=== PATIENT | female | born 1975 | race Caucasian/White ===

== ENCOUNTER 2023-07-17 09:46 | Outpatient (RCR) | payer BC, SELFPAY ==
--- NOTE | 2023-07-17 10:40 | OPREHPOC ---
Outpatient Therapy Plan of Care This is a Multidisciplinary Plan of Care that may contain components documented by all disciplines (PT, OT, and ST.) PT Problem 1 PT Problem #1 Knowledge Deficit PT Goal 1 Goal 1. Patient will perform independent HEP Target Visit 5 PT Problem 2 PT Problem #2 Impaired Strength PT Goal 1 Goal 1. Improve pelvic floor strength to 3/5 to decrease incontinence Target Visit 5 PT Goal 2 Goal 2. Improve pelvic floor endurance to 10 seconds to decrease incontinence PT Problem 3 PT Problem #3 Impaired Functional ADLs PT Goal 1 Goal 1. Patient will report no more than 2 instances of urinary incontinence per week
--- NOTE | 2023-07-17 10:40 | PTOPEVAL1 ---
Assessment and note entered by Anais Aragon DPT Evaluation Information Assessment Status Evaluation Subjective Information Pt reports some urinary incontinence and feels a lot of pressure. Incontinence occurs with running, standing up, coughing, sneezing, certain positions during intercourse. Has been occurring for a long time but has greatly worsened over the past 6 months. Has been told she is perimenopausal . Notices incontinence 2-3 times a day and sees a bulge after being on her feet a long time. Voids 4 -5 times a day and 0-1 times a night. Can hold urge 5-10 minutes and sometimes is running to bathroom and will leak on the way. Denies pain with urination. BM every few days, no pain. Denies history of pelvic pain other than mild discomfort with sex at times. Pt has been 2 times, 2 vaginal deliveries with significant tearing. No other TERMINAL GAUGER history and no other b/b history. Thinks she still has a diastasis. Patient goal: stop peeing my pants . Reports embarrassment over the incontinence and frustration over the cost of leak-proof underwear or pads. Sometimes has to change her clothes. States she will always know where the bathroom is when she is out and about and avoids strenuous activities. Spinal fusion L5-S1 8 years ago. Reported Pain Level Pain Score 0: Self Report Assessment PT Clinical Summary The patient is presenting to skilled therapy with a history of urinary incontinence that has greatly worsened over the last 6 months. She presents with decreased pelvic floor muscle strength and endurance, decreased core strength, and POP which are contributing to her significant incontinence. She will highly benefit from therapy to address her impairments in order to reduce incontinence and improve function. Plan of Care Interventions Manual Therapy,Neuro Re-education,Patient/ Caregiver Education,Therapeutic Activities, Therapeutic Exercise PT Services Indicated Yes These treatments will address the objective and functional deficits as defined above. The patient will be advanced safely and appropriately in order for the patient to progress towards his/her prior level of function. Additional exercises will be introduced and as well as a comprehensive home exercise program upon discharge, if needed, ?to ensure ca
--- NOTE | 2023-07-17 10:43 | PTOPEVAL1 ---
Assessment and note entered by Anais Aragon DPT Evaluation Information Assessment Status Evaluation Subjective Information Pt reports some urinary incontinence and feels a lot of pressure. Incontinence occurs with running, standing up, coughing, sneezing, certain positions during intercourse. Has been occurring for a long time but has greatly worsened over the past 6 months. Has been told she is perimenopausal . Notices incontinence 2-3 times a day and sees a bulge after being on her feet a long time. Voids 4 -5 times a day and 0-1 times a night. Can hold urge 5-10 minutes and sometimes is running to bathroom and will leak on the way. Denies pain with urination. BM every few days, no pain. Denies history of pelvic pain other than mild discomfort with sex at times. Pt has been 2 times, 2 vaginal deliveries with significant tearing. 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 Thinks she still has a diastasis. Patient goal: stop peeing my pants . Reports embarrassment over the incontinence and frustration over the cost of leak-proof underwear or pads. Sometimes has to change her clothes. States she will always know where the bathroom is when she is out and about and avoids strenuous activities. Spinal fusion L5-S1 8 years ago. Reported Pain Level Pain Score 0: Self Report Assessment PT Clinical Summary The patient is presenting to skilled therapy with a history of urinary incontinence that has greatly worsened over the last 6 months. She presents with decreased pelvic floor muscle strength and endurance, decreased core strength, and POP which are contributing to her significant incontinence. She will highly benefit from therapy to address her impairments in order to reduce incontinence and improve function. Plan of Care Interventions Manual Therapy,Neuro Re-education,Patient/ Caregiver Education,Therapeutic Activities, Therapeutic Exercise PT Services Indicated Yes Treatment Frequency and 1 visit every 2-3 weeks for 5 visits total (based Duration on patient schedule) These treatments will address the objective and functional deficits as defined above. The patient will be advanced safely and appropriately in order for the patient to progress towards hi
--- NOTE | 2023-08-01 13:52 | PCPTNOTE ---
Patient did not show up for appointment 08/01/23. Called and left voicemail for patient.
--- NOTE | 2023-09-05 13:51 | PTOPDC ---
Assessment and note entered by Anais Aragon, DPT Evaluation Information Assessment Status Discharge - Pt Not Present Subjective Information - Assessment PT Clinical Summary Patient no showed re-evaluation today and has not been in attendance since initial evaluation in July. Her case will be discharged. Plan of Care PT Services Indicated No
== END 2023-09-05 15:15 | disposition home or self-care (01) ==
LOC: ANHPT 09:46
PROVIDERS: PCP Family Medicine; Visit Provider Family Medicine
DX: R10.2 Pelvic and perineal pain (principal)
CPT/HCPCS: 97112; 97161; 97530; 99199

== ENCOUNTER 2025-08-29 15:39 | Outpatient (CLI) | payer OTHER, SELFPAY ==
[2025-08-29 16:04] LABS: Hematocrit 38.7 % (35.0-49.0); Hemoglobin 13.0 g/dL (12.0-15.0); Mean Corpuscular HGB Conc 33.6 g/dL (32-36); Mean Corpuscular Hemoglobin 30.4 pg (27.0-31.0); Mean Corpuscular Volume 90.4 fL (78.0-102.0); Platelet Count Result 398 K/mm3 (150-420); Red Blood Count 4.28 M/mm3 (4.20-5.40); White Blood Count 8.1 K/mm3 (4.8-10.8)
[2025-08-29 16:25] LABS: Hemoglobin A1C 5.0 % (<5.7)
--- OUTSIDE RECORDS SUMMARY | 2025-08-29 16:32 | XMS_ITS | Patient Health Record ---
Author Organization [facility] As Locally Address [address] [facility] [address] [place] [address] Care Team Providers Care Shop Manager Name Role Phone Eyad Curran MD Primary Care Provider Stephen Lange Unavailable [phone] Allergies Allergen (clinical drug ingredient) Drug/Non Drug Allergy documented on EMR Reaction Allergy Type Onset Date Status Substance with sulfonamide structure and antibacterial mechanism of action (substance) Sulfa Antibiotics Unknown Drug Allergy Active Results Component Value Reference Range Notes UDT Reviewed date:11/11/2024 02:39:22 PM Interpretation: Performing Lab: Notes/Report: THC N 0 - 50 ng/ml Cocaine N 0 - 300 ng/ml Amphetamine N 0 - 1000 ng/ml Buprenorphine (BUP) N 0 - 10 ng/ml Secobarbital (Bar) N 0 - 300 ng/ml Oxazepam (BZO) N 0 - 300 ng/ml 5-ebjqvklcao-4,1-zatiosdr-1,3-diphenylpyrrolidine (JORGE P) N 0 - 300 ng/ml Methamphetamine (MET) N 0 - 1000 ng/ml Methylenedioxymethamphetamine (MDMA) N 0 - 500 ng/ml Morphine (MOP 300/[id number]) N 0 - 300 ng/ml Methadone (MTD) N 0 - 300 ng/ml Phencyclidine (PCP) N 0 - 25 ng/ml Nortriptyline (TCA) N 0 - 1000 ng/ml Oxycodone N 0 - 300 ng/ml x N 0 - 300 ng/ml Reason For Referral No Information Medications Medication SIG (Take, Route, Frequency, Duration) Notes Start Date End Date Status buPROPion HCl ER (SR) 150 MG Tablet Extended Release 12 Hour TAKE 1 TABLET BY MOUTH TWICE DAILY Oral; Duration: 30 Days Active Lisinopril 20 MG Tablet TAKE 1 TABLET BY MOUTH ONCE DAILY Oral; Duration: 30 Days Active Social History Tobacco Use: Social History Observation Description Date Details (start date - stop date) Never Smoker NA - NA Sex Assigned At : Social History Observation Description Sex Assigned At Female Social History Miscellaneous: Social Info Question Answer Notes Advance Care Planning Are you your own decision-maker Yes Do you have Power of [place] for Health or Medi nella? No Safety issues: Are there any firearms in the house? No Social History Social Info Question Answer Notes Household: Marital Status: Number of Adults in household: 2 Number of Children in Household: 0 Level of Education: Professional Schools/Masters /PhD Drug/Alcohol: Social Info Question Answer Notes AUDIT-C (Standard) Did you have a drink containing alcohol in the past year? Yes How often did you have a drink containing alcohol in the past year? 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), predominantly inattentive type (F90.0) Active confirmed Vital Signs Heart Rate 84 /min 11/11/2024 Height-cm 167.64 cm 11/11/2024 Blood pressure diastolic 90 mm Hg 11/11/2024 Weight-kg 79.38 kg 11/11/2024 Height 66 in 11/11/2024 Blood pressure systolic 148 mm Hg 11/11/2024 Weight 175 lbs 11/11/2024 BMI 28.24 kg/m2 11/11/2024 Encounters Encounter Location Date Provider Diagnosis [facility] [address] [place] [address] 11/11/2024 Stephen Ambriz Attention deficit hyperactivity disorder (ADHD), predominantly inattentive type F90.0 and FELIZ (generalized anxiety disorder) F41.1 [facility] [address] [place] [address] 12/09/2024 Stephen Ambriz Assessments Encounter Date Diagnosis (ICD Code) Assessment Notes Treatment Notes Treatment Clinical Notes Section Notes 11/11/2024 FELIZ (generalized anxiety disorder) (ICD-10 - F41.1) ADHD - Inattentive Type - Assessment: Patient reports lifelong struggles with procrastination, forgetfulness, and difficulty sustaining attention. Symptoms have worsened with increased workload from her job and graduate school. She has tried coping mechanisms such as list-making and prioritizing but is still struggling. Patient reports difficulty with reading comprehension, tuning out during lectures, and needing to rewatch educational videos multiple times. - Plan: - Schedule ADHD testing to confirm the diagnosis. - Discuss potential pharmacological treatment options for ADHD if the diagnosis is confirmed. Anxiety - Assessment: Patient has a history of anxiety and is currently taking Wellbutrin 150 mg twice a day. She has tried increasing the dose to 200 mg twice a day, but it was not well-tolerated. She has previously taken duloxetine, which was effective for anxiety, but it is not covered by her current insurance ([employer]). - Plan: - Continue Wellbutrin at the current dose of 150 mg twice a day. - Explore alternative medications for anxiety that may be covered by her insurance. - Consider referral to a therapist for cognitive-behaviora l therapy to address anxiety symptoms. High Blood Pressure - Assessment: Patient reports occasional high blood pressure readings, possibly related to anxiety. Blood pressure was elevated during the visit, but patient attributes this to nervousness about the appointment. - Plan: - Monitor blood pressure regularly. - Encourage lifestyle modifications, such as stress reduction, regular exercise, and a healthy diet. - Reevaluate the need for antihypertensive medication if blood pressure remains consistently elevated. Depression (historical) - Assessment: Patient reports a history of depression after the of her oldest child, treated with Effexor. She did not like the medication due to feeling numb. - Plan: - No active intervention needed at this time, as the patient is not currently experiencing depressive symptoms. - Monitor for any recurrence of depressive symptoms during future visits. 11/11/2024 Attention deficit hyperactivity disorder (ADHD), predominantly inattentive type (ICD-10 - F90.0) ADHD - Inattentive Type - Assessment: Patient reports lifelong struggles with procrastination, forgetfulness, and difficulty sustaining attention. Symptoms have worsened with increased workload from her job and graduate school. She has tried coping mechanisms such as list-making and prioritizing but is still struggling. Patient reports difficulty with reading comprehension, tuning out during lectures, and needing to rewatch educational videos multiple times. - Plan: - Schedule ADHD testing to confirm the diagnosis. - Discuss potential pharmacological treatment options for ADHD if the diagnosis is confirmed. Anxiety - Assessment: Patient has a history of anxiety and is currently taking Wellbutrin 150 mg twice a day. She has tried increasing the dose to 200 mg twice a day, but it was not well-tolerated. She has previously taken duloxetine, which was effective for anxiety, but it is not covered by her current insurance ([employer]). - Plan: - Continue Wellbutrin at the current dose of 150 mg twice a day. - Explore alternative medications for anxiety that may be covered by her insurance. - Consider referral to a therapist for cognitive-behaviora l therapy to address anxiety symptoms. High Blood Pressure - Assessment: Patient reports occasional high blood pressure readings, possibly related to anxiety. Blood pressure was elevated during the visit, but patient attributes this to nervousness about the appointment. - Plan: - Monitor blood pressure regularly. - Encourage lifestyle modifications, such as stress reduction, regular exercise, and a healthy diet. - Reevaluate the need for antihypertensive medication if blood pressure remains consistently elevated. Depression (historical) - Assessment: Patient reports a history of depression after the of her oldest child, treated with Effexor. She did not like the medication due to feeling numb. - Plan: - No active intervention needed at this time, as the patient is not currently experiencing depressive symptoms. - Monitor for any recurrence of depressive symptoms during future visits. 11/11/2024 Other Learning About Depression Screening material was printed ADHD - Inattentive Type - Assessment: Patient reports lifelong struggles with procrastination, forgetfulness, and difficulty sustaining attention. Symptoms have worsened with increased workload from her job and graduate school. She has tried coping mechanisms such as list-making and prioritizing but is still struggling. Patient reports difficulty with reading comprehension, tuning out during lectures, and needing to rewatch educational videos multiple times. - Plan: - Schedule ADHD testing to confirm the diagnosis. - Discuss potential pharmacological treatment options for ADHD if the diagnosis is confirmed. Anxiety - Assessment: Patient has a history of anxiety and is currently taking Wellbutrin 150 mg twice a day. She has tried increasing the dose to 200 mg twice a day, but it was not well-tolerated. She has previously taken duloxetine, which was effective for anxiety, but it is not covered by her current insurance ([employer]). - Plan: - Continue Wellbutrin at the current dose of 150 mg twice a day. - Explore alternative medications for anxiety that may be covered by her insurance. - Consider referral to a therapist for cognitive-behaviora l therapy to address anxiety symptoms. High Blood Pressure - Assessment: Patient reports occasional high blood pressure readings, possibly related to anxiety. Blood pressure was elevated during the visit, but patient attributes this to nervousness about the appointment. - Plan: - Monitor blood pressure regularly. - Encourage lifestyle modifications, such as stress reduction, regular exercise, and a healthy diet. - Reevaluate the need for antihypertensive medication if blood pressure remains consistently elevated. Depression (historical) - Assessment: Patient reports a history of depression after the of her oldest child, treated with Effexor. She did not like the medication due to feeling numb. - Plan: - No active intervention needed at this time, as the patient is not currently experiencing depressive symptoms. - Monitor for any recurrence of depressive symptoms during future visits. Plan Of Treatment No Information Insurance Providers Payer Name Payer Address Payer Phone Subscriber Number Group Number Insured Name Patient Relationship to Insured Coverage Start Date Coverage End Date [facility] [address] [place] [address] [id number] Margaret Saleh Self - patient is the insured Medical (General) History Medical History History ICD Code Past Psychiatric History: Anxiety Disord er Surgical History Surgery Date(Month/Year) spinal fusion 2016 Hospitalization History Reason Date(Month/Year) spinal fusion 2015
--- OUTSIDE RECORDS SUMMARY | 2025-08-29 16:32 | XMS_ITS | Clinical Summary ---
Author Organization [facility] Address [address] [place] [address] Care Team Providers Care Deputy Prosecuting Attorney Name Role Phone Eyad Bell MD Primary Care Provider Social History Tobacco Use Types Packs/Day Years Used Date Smoking Tobacco: Never Assessed Comments No Sex and Gender Information Value Date Recorded Sex Assigned at Female 12/28/2024 2:32 PM [employer]EL[employer] SUGAR [employer]ILER Legal Sex Female 5:54 PM [employer] Gender Identity Not on file Sexual Orientation Not on file Plan of Treatment Health Maintenance Due Date Last Done Comments Cervical Cancer Screening Pap Smear (Age 30 to 64) Every 3 Years 1977 Colorectal Cancer Screening Colonoscopy (10 Years) 1977 Annual Physical 1980 Hepatitis C 1995 Hepatitis B Vaccines (1 of 3 - 19+ 3-dose series) 1996 Cervical Cancer Screening Pap with HPV Testing (Age 30 to 64) Every 5 Years 2007 Cervical Cancer Screening with HPV 2007 COVID-19 Vaccine ( season) 2025 08/16/2021, 07/24/2021 Mammogram Screening 01/12/2027 01/12/2025, 07/07/2024, 11/26/2023, Additional history exists DTaP, Tdap and Td Vaccines (3 - Td or Tdap) 07/17/2032 07/17/2022, 07/15/2022 Meningococcal B Vaccine Aged Out No l onger eligible based on patient's age to complete this topic Meningococcal Vaccine Aged Out No vikash mercedes eligible based on patient's age to complete this topic Pneumococcal Vaccine: Pediatrics (0 to 5 Years) and At-Risk Patients (6 to 49 Years) Aged Out No longer eligible based on patient's age to complete this topic RSV Immunizations Under 20 Months Aged Out No longer eligible based on patient's age to complete this topic Procedures Procedure Name Priority Date/Time Associated Diagnosis Comments MG AKI Zavala YONY BILAT DIGI Routine 01/12/2025 9:02 AM REMELT SUGAR BOILER Abnormal mammogram of left breast from Last 3 Months or Most Recently Relevant to Health Maintenance Results * MG DIAG W YONY BILAT DIGI (01/12/2025 9:02 AM [employer]ELT SUGAR BOILER) Anatomical Region Laterality Modality Breast Bilateral Mammography, Rad iographic Imaging 01/12/2025 9:34 AM [employer]ELT SUGAR BOILER Impressions 01/12/2025 9:38 AM REMELT SUGAR BOILER IMPRESSION: No imaging findings suggestive of malignancy Recommendation: 1: Routine screening mammogram bilateral in 1 year Return for Routine Follow-Up: Yes Overall assessment: ACR BI-RADS Category 2 - Benign. Ordered By: EYAD BELL Interpreted By: Geovanni James MD, 01/12/2025 9:34 AM Narrative 01/12/2025 9:38 AM REMELT SUGAR BOIL[employer] [address] [place] [address] Examination: Left diagnostic mammogram, right screening mammogram, left breast ultrasound [id number] Clinical history: Short-term follow-up for focal abnormality medial left breast, screening right breast. Comparison: Mammograms 07/27/2024, 10/29/2023 Technique: Digital diagnostic mammography of both breasts and ultrasound of the left breast was performed. Breast tomosynthesis acquisitions were obtained bilaterally. This study was read with the assistance of a computer-aided detection system. Tissue density: There are scattered areas of fibroglandular density. Findings: Diagnostic mammogram: Focal 1 cm asymmetry in the medial left breast best seen on cc view is unchanged in comparison to previous studies. No new suspicious masses, malignant appearing calcifications, skin thickening or other abnormalities are present. No significant change from the prior exam. Examination: Left breast ultrasound Findings: The images again demonstrate a small cluster of cysts in the medial left breast along the 10:00 radian 4 cm from the nipple. This is unchanged from previous study. A second tiny adjacent cyst is also noted. There is no evidence of solid hypoechoic mass or sharp acoustic shadowing. us Eyad Bell MD MAMMO Final Resul t from Last 3 Months or Most Recently Relevant to Health Maintenance Insurance [facility] Care Teams Deputy Prosecuting Attorney Relationship Specialty Start Date End Date Eyad Bell MD [address] [place] [address] PCP - General FAMILY PRACTICE 09/29/23
[2025-08-29 17:03] LABS: Alanine Aminotransferase 36 U/L (6-35); Albumin Level 4.9 g/dL (3.5-5.1); Alkaline Phosphatase 94 U/L (38-126); Anion Gap 11 mmol/L (4-12); Aspartate Amino Transferase 35 U/L (14-36); Bilirubin,Total 0.5 mg/dL (0.2-1.3); Blood Urea Nitrogen 18 mg/dL (7-17); Calcium 10.2 mg/dL (8.4-10.2); Carbon Dioxide 29 mmol/L (22-30); Chloride 99 mmol/L (98-107); Estimated Glomerular Filt Rate > 60; Glucose 82 mg/dL (65-110); Osmolality Calculated 288 mOsm/kg (285-295); Potassium 4.6 mmol/L (3.4-5.0); Sodium 139 mmol/L (137-145); Total Protein 8.3 g/dL (6.3-8.2)
[2025-08-29 17:21] LABS: Free T4 Free Thyroxine 0.78 ng/dL (0.78-2.19)
[2025-08-29 18:35] LABS: Iron 97 ug/dL (37-170)
[2025-08-29 18:43] LABS: Percent Iron Saturation 27 % (20-50)
[2025-08-29 19:55] LABS: Thyroid Stimulating Hormone 0.765 uIU/mL (0.465-4.680)
[2025-08-29 20:00] LABS: Ferritin 12.50 ng/mL (6.24-137)
[2025-08-29 20:31] LABS: Vitamin B12 964.0 pg/mL (239-931)
[2025-09-02 16:08] LABS: Free Testosterone (Direct) 1.0 pg/mL (0.0-4.2)
[2025-09-03 21:07] LABS: Estradiol, Sensitive 25.9 pg/mL (.)
== END 2025-08-29 15:40 | disposition home or self-care (01) ==
PROVIDERS: PCP Family Medicine
DX: N95.1 Menopausal and female climacteric states (principal); F41.1 Generalized anxiety disorder; E66.3 Overweight; Z13.1 Encounter for screening for diabetes mellitus; E78.5 Hyperlipidemia, unspecified; Z13.0 Encounter for screening for diseases of the blood and blood-forming organs and certain disorders involving the immune mechanism
CPT/HCPCS: 36415; 80053; 82306; 82607; 82670; 82728; 82746; 83036; 83525; 83540; 83550; 84144; 84270; 84402; 84403; 84439; 84443; 85027